=== PATIENT | male | born 1965 | race Caucasian/White ===

== ENCOUNTER 2021-10-25 07:56 | Day surgery (SDC) | payer BC ==
[~2021-10-25 07:56] MED LIST: Lactated Ringers 1,000 ML IV SCH
[2021-10-25] MEDS ORDERED: fentaNYL 100 MCG/2 ML SDV ONE (09:17)
[2021-10-25] MEDS ORDERED: Propofol 200 MG/20 ML SDV ONE ×2 (09:17→10:57)
[2021-10-25 11:43] VITALS: BP 110/65; PULSE 51
== END 2021-10-25 12:30 | disposition home or self-care (01) ==
LOC: VM.SDS 07:56
PROVIDERS: ATTEND Family Medicine
DX: Z12.11 Encounter for screening for malignant neoplasm of colon (principal); K57.30 Diverticulosis of large intestine without perforation or abscess without bleeding; K64.9 Unspecified hemorrhoids; Z80.0 Family history of malignant neoplasm of digestive organs; F17.220 Nicotine dependence, chewing tobacco, uncomplicated
CPT/HCPCS: 00812; J2704; J3010; J7120